=== PATIENT | male | born 1945 | race Caucasian/White ===

== ENCOUNTER 2022-12-19 09:27 | Emergency (ER) | payer OTHER, SELFPAY ==
[2022-12-19 09:28] VITALS: BP 178/104; PULSE 92; RESP 14; TEMP 36.4; O2SAT 98; BMI 27.2
--- NOTE | 2022-12-19 09:54 | RAD_ITS ---
STUDY: X-RAY CHEST REASON FOR EXAM: Male, 76 years old. Neuro deficit, acute, stroke suspected TECHNIQUE: Single AP portable view of the chest. COMPARISON: None. FINDINGS: The lungs are clear and expanded. There is no demonstrated pleural abnormality. Normal size heart. Normal mediastinum and umang. Normal visualized pulmonary arteries. There is atherosclerotic calcification of the aortic arch with tortuosity. There are diffuse degenerative changes of the visualized thoracic spine. Normal visualized ribs, clavicles, and shoulders. There is no demonstrated abnormality of the visualized soft tissue structures of the upper abdomen. RAD/Chest 1 View IMPRESSION: Degenerative changes, as described above. No demonstrated acute cardiopulmonary process. Electronically Signed: Bo Becker MD at 11:04 EDT ,
--- NOTE | 2022-12-19 09:54 | EKG12_ITS ---
Test Reason : R/O STROKE Blood Pressure : / mmHG Vent. Rate : 071 BPM Atrial Rate : 071 BPM P-R Int : 182 ms QRS Dur : 072 ms QT Int : 364 ms P-R-T Axes : 038 -13 004 degrees QTc Int : 395 ms Normal sinus rhythm Low voltage QRS Inferior infarct , age undetermined Abnormal ECG Confirmed by NATHALIA LEE, GIOVANNI ([id number]), field map editor KERRIE PAREDES ([id number]) on 12/22/2022 9:59:23 AM Referred By: BRITTANEY Confirmed By:CORI SLOAN MD
[2022-12-19 10:14] LABS: Absolute Lymphocyte Count 1.52 X10^3/uL (0.83-4.51); Absolute Neutrophil Count 3.2 X10^3/uL (2.0-7.7); Basophil# 0.04 X10^3/uL; Basophil% 0.7 % (0-1); Eosinophil# 0.25 X10^3/uL; Eosinophils% 4.5 % (0-5); Hematocrit 48.3 % (40-54); Hemoglobin 16.4 g/dL (13.0-16.5); Lymphocyte # 1.52 X10^3/ul (0.83-4.51); Lymphocyte % 27.6 % (19-41); Mean Corpuscular Hgb 31.2 pg (27.0-32.0); Mean Platelet Vol. 10.2 fl (6.2-12.0); Monocyte# 0.49 X10^3/uL; Monocyte% 8.9 % (0-10); NRBC Flagged by Analyzer 0 % (0-5); Neutrophil % 58.1 % (47-70); Platelet Count 176 K/mm3 (150-450); RBC Distribution Width CV 12.7 % (11.6-14.6); RBC Distribution Width SD 42.7 fl (35.1-43.9); Red Blood Count 5.25 M/mm3 (4.6-6.2); White Blood Count 5.5 K/mm3 (4.4-11.0)
[2022-12-19 10:18] VITALS: BP 161/90; PULSE 71; RESP 12; O2SAT 94
[2022-12-19 10:23] LABS: International Normalized Ratio 1.1; Partial Thromboplast Time 32.9 Seconds (24.1-36.2); Prothrombin Time (Protime)PT. 13.6 SECONDS (11.7-14.9)
[2022-12-19 10:29] LABS: Anion Gap 3 (5-15); BUN 16 mg/dL (7-18); BUN/Creat Ratio 17.1 RATIO (10-20); Chloride 108 mmol/L (98-107); Creatinine, Serum 0.94 mg/dL (0.70-1.30); EST Glomerular Filtration Rate 84 mL/min (>60); Est Glom Filt Rate - Afr Amer 101 mL/min (>60); Estimated Creatinine Clearance 71.19 ml/min; Glucose 94 mg/dL (74-106); Potassium 4.2 mmol/L (3.5-5.1); Sodium Level 140 mmol/L (136-145); Troponin-I HS 32 pg/mL (3.0-78.0)
[2022-12-19 10:33] VITALS: BP 151/93; PULSE 80; RESP 16; O2SAT 94
[2022-12-19 10:35] LABS: Bedside Glucose 78 mg/dL (74-106)
--- NOTE | 2022-12-19 10:57 | ED.RN ---
FAXED SIGNED VOLUNTARY AND GENERAL CONSENT AND NEGATIVE TEST TO [facility] PER THEIR REQUEST
--- NOTE | 2022-12-19 11:15 | EDS_ITS ---
HPI History of Present Illness Chief Complaint: General Illness Detail of Chief Complaint: MRI revealed a stroke Informant: patient Onset/Context/Timing Onset: - (Onset is unknown) Context: - (Intermittent visual complaints) Timing: Intermittent Quality: Visual complaints affecting upper visual schulte bilaterally Location: Documented Current Severity: Gone Maximum Severity: Mild Worsened by: Nothing Relieved by: Nothing Associated Symptoms Associated Symptoms: No other symptoms Narrative Narrative: Patient is 76-year-old male who had an MRI performed yesterday at the [facility]. He was contacted today by Dr. Allen because the MRI revealed a a probable infarct 9 mm acute small left posterior frontal cortex/subcortex white matter. Patient presently has no symptoms. His visual symptoms have been going on for some time. Per records that were transmitted from the CT indicates that this is been going on for 2 years. Based on his medication list he has history of anxiety, hypertension, and constipation. Creatinine is normal. LDH is unremarkable. Hemoglobin A1c is normal. Patient is not the best informant. Prior similar symptoms: Yes Recent Illness/Hospitalization: Yes PFSH PFS Medical History Cataract fragments in eye following surgery HTN (hypertension) Allergy/AdvReac Type Severity Reaction Status Date / Time No Known Allergies Allergy Verified 12/19/22 09:30 Social History (Updated 12/19/22 @ 11:[address] Philip Delacruz MD) Smoking Status: Former smoker substance use type: does not use ROS ROS ED Constitutional Constitutional ED: Denies chills, fever(s), subjective, sweats or weight loss Eyes Eyes: Reports change in vision bilateral (Affecting upper visual field at least for 1 year if not longer.) ENT ENT ED: Denies ear pain, rhinorrhea or sore throat Cardiovascular Cardiovascular: Denies chest pain or palpitations Respiratory/Chest Respiratory/Chest: Denies cough, dyspnea or dyspnea on exertion Gastrointestinal Gastrointestinal: Denies abdominal pain, nausea or vomiting Musculoskeletal Musculoskeletal: Denies arthralgias, back pain or myalgias Integumentary Denies Abrasions Neurologic Neurologic: Denies headache(s), paresthesias or weakness Psychiatric Psychiatric: Reports anxiety Endocrine Endocrinology: Denies polydipsia or polyuria Hematologic/Lymphatic Hematologic/Lymphatic: Reports systems reviewed and no addt'l complaints, except as documented EXAM Physical Exam Const Vital Signs: 12/19/22 09:28 12/19/22 10:03 12/19/22 10:06 Temperature 97.6 F L Temperature Source Temporal Pulse Rate 92 Respiratory Rate 14 Respiratory Effort Normal Non-Labored Blood Pressure 178/104 H Blood Pressure Mean 128 Pulse Ox 98 Oxygen Delivery Method Room Air Room Air 12/19/22 10:18 12/19/22 10:33 12/19/22 12:02 Temperature Temperature Source Pulse Rate 71 80 76 Respiratory Rate 12 16 11 L Respiratory Effort Blood Pressure 161/90 H 151/93 H 153/97 H Blood Pressure Mean 113 112 115 Pulse Ox 94 94 94 Oxygen Delivery Method Room Air Room Air Room Air Positive well nourished and well developed General Appearance ED: well developed and NAD; Negative for pallor HEENT Reports moist mucous membranes HEENT Narrative: Head is atraumatic normocephalic. Ears normal. Posterior pharynx is normal. Aviation tongue with protrusion. Eyes PERRL and EOMs intact bilaterally Eyes Narrative: There is no visual field cut. General Eye ED: Negative for pale conjunctiva or scleral icterus Neck no lymphadenopathy, supple and no JVD Chest Wall inspection of chest normal and palpation of chest normal Cardio regular rate, regular rhythm, S1 normal heart sound, S2 normal heart sound and no murmurs GI normal to inspection, nondistended, normoactive bowel sounds, non-tender, non- distended and no masses; Negative for hepatosplenomegaly Back/Spine no CVA tenderness Thoracic Spine / Upper Back: Negative for thoracic spinal tenderness Lumbar Spine / Lower Back: Negative for lumbar spinal tenderness Neuro oriented x3, CN's II-XII intact bilaterally and no sensory deficits noted Neuro Narrative: NIH is 0 Sensorium / Orientation: alert Motor Exam: strength 5/5 throughout Psych mental status grossly normal Skin no rashes or lesions noted, no wounds and skin turgor normal General Skin Exam: Negative for jaundice or pallor MDM MDM MDM Narrative Medical decision making narrative: Stroke order set was initiated. Imaging was not performed since he had an MRI which reportedly revealed a stroke yesterday. Dr. 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 Lab results narrative: CBC is normal. Coags are normal. Basic meta Bolick panel is normal. Trip and is normal Labs: Laboratory Results - last 24 hr 12/19/22 12/19/22 12/19/22 10:05 10:05 10:05 WBC 5.5 RBC 5.25 Hgb 16.4 Hct 48.3 MCV 92.0 MCH 31.2 MCHC 34.0 RDW Std Deviation 42.7 RDW Coeff of [place] 12.7 Plt Count 176 MPV 10.2 Immature Gran % (Auto) 0.200 Neut % (Auto) 58.1 Lymph % (Auto) 27.6 [place] % (Auto) 8.9 Eos % (Auto) 4.5 Baso % (Auto) 0.7 Absolute Neuts (auto) 3.2 Absolute Lymphs (auto) 1.52 Nucleated RBC % 0 PT 13.6 INR 1.1 APTT 32.9 Sodium 140 Potassium 4.2 Chloride 108 H Carbon Dioxide 29.0 Anion Gap 3 L BUN 16 Creatinine 0.94 Estim Creat Clear Calc 71.19 Est GFR (MDRD) Af Amer 101 Est GFR (MDRD) Non-Af 84 BUN/Creatinine Ratio 17.1 Glucose 94 Calcium 9.0 Troponin I High Sens 32 POC Glucose 12/19/22 10:14 WBC RBC Hgb Hct MCV MCH MCHC RDW Std Deviation RDW Coeff of [place] Plt Count MPV Immature Gran % (Auto) Neut % (Auto) Lymph % (Auto) [place] % (Auto) Eos % (Auto) Baso % (Auto) Absolute Neuts (auto) Absolute Lymphs (auto) Nucleated RBC % PT INR APTT Sodium Potassium Chloride Carbon Dioxide Anion Gap BUN Creatinine Estim Creat Clear Calc Est GFR (MDRD) Af Amer Est GFR (MDRD) Non-Af BUN/Creatinine Ratio Glucose Calcium Troponin I High Sens POC Glucose 78 Radiography Chest X-Ray - ED: 1 View and Read by ED Physician (Single view chest x-ray reveals chronic changes. There is degenerative disc disease noted. Cardiac silhouette size unremarkable. Lung parenchyma is unremarkable. Perihilar regions unremarkable.) Diagnostic Testing: Clinical Impression(s) from Imaging Studies Chest X-Ray 12/19/22 09:54 IMPRESSION: Degenerative changes, as described above. No demonstrated acute cardiopulmonary process. Electronically Signed: Bo Becker MD at 11:04 EDT , EKG Initial EKG: Attestation: I personally reviewed and interpreted this EKG as follows: Interpretation: Sinus Rhythm (Rate is 71. Voltage is low. OH interval is 182 ms. Cures duration 72 ms. QT duration 3 and 64 ms. Gamaliel is normal. There is no acute ischemic changes noted) Treatment and Re-Evaluation :: Patient was informed that he would need a further work-up for stroke and stroke education. Since he has not had an echo within the past year he needs an echocardiogram. He did have a ultrasound of his carotid last year. There is abnormality. He states he was told he needs annual ultrasounds of his carotid. In light of the fact that he has not had a recent echo, is getting annual ultrasounds of his carotid and needs stroke education follow-up recommendation is 23 hours observation to expedite his work-up especially since the MRI shows an abnormality. The hospitalist did call back. The charge nurse took the call since I was with a patient. The hospitalist [facility]. I was informed by the department secretary that she received a authorization number for the CT for patient to be admitted here. We will recontact the hospitalist. 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
--- NOTE | 2022-12-19 11:51 | ED.RN ---
PT HAS [facility] INSURANCE, THIS RN CALLED THE [facility] TRANSFER LINE. THEY REQUEST E-CHART TO BE FAXED TO [phone].
[2022-12-19 12:02] VITALS: BP 153/97; PULSE 76; RESP 11; O2SAT 94
--- NOTE | 2022-12-19 12:03 | ED.RN ---
[facility] FAXED PER THIS RN AT [phone].
--- NOTE | 2022-12-19 12:21 | ED.RN ---
NOTIFICATION # [id number] AUTH # [id number]
[2022-12-19 12:35] VITALS: BP 155/96; PULSE 80; RESP 17; TEMP 36.8; O2SAT 96
--- NOTE | 2022-12-19 13:07 | DCINST_ITS ---
Discharge Instructions Diet Discharge Diet: Low fat / Low cholesterol Activity Discharge Activity: Return to Normal Activity Additional Activity Instructions:: Continue your home medication as previously ordered. Dressing / Incision Call your doctor if you observe: - (increased or recurrent blurred vision. unilateral (one-sided) weakness. ) Follow Up Care Test Results: Test results from this visit will be discussed in further detail at your follow- up appointment, if applicable. 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
--- NOTE | 2022-12-19 13:10 | PCM.CONS.GEN ---
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 3 medical decision making I discussed with the patient and his significant other at bedside my recommendations: My recommendations were the same as the emergency room physician that he should be admitted and undergo further work-up in regards to completing the stroke work-up which included echocardiogram, carotid ultrasound, physical and Occupational Therapy. Also acknowledging that he may need an event monitor for 30 days because of his self-reported history of atrial fibrillation. Patient is currently not in atrial fibrillation. I also acknowledged that the event happened 2 weeks ago and that he has been having these issues over the past 2 years and now it is finally been diagnosed. I did acknowledge that it does require further work-up. After deliberation, patient states that he would prefer to go home and is [facility] Patient is confident that he would be able to get an echocardiogram as well as carotid ultrasound what ever additional testing may need to be had. So patient is aware of the recommendations by myself as well as Dr. Delacruz to stay and get work-up but he wishes to go home. Being that this event happened 2 weeks or so ago the urgency for these tests being done immediately has passed as a event is now subacute. Patient has been advised if he does have worsening symptoms such as visual field issues or new symptoms such as unilateral weakness, expressive or receptive aphasia, to notify physician or come back into the emergency room. Patient is to continue with his aspirin that he is taking previously. Patient [facility] to get his [facility]in prescription. PLAN: Plan Hypertension: Continue with his Norvasc 2.5 mg daily HPI Consult Data Date of Consult: 12/19/22 HPI Narrative Reason for Consultation: Stroke HPI Narrative: JUSTICE UNGER, is a 76 M who presents presents after being advised to come to the emergency room. Patient has, over the past couple years, had visual fog that lasted for roughly 5 minutes. Last event was about 2 weeks ago. Symptoms completely resolved has not been having any further symptoms before. [facility] that showed a probable infarct of 9 mm of an acute small left posterior frontal cortex/subcortex white matter. Physician called the patient to go to the emergency room and have further stroke evaluation. Patient otherwise feels fine and once again, has not had any symptoms in the past 2 weeks. [facility] Medical History Cataract fragments in eye following surgery HTN (hypertension) Allergy/AdvReac Type Severity Reaction Status Date / Time No Known Allergies Allergy Verified 12/19/22 09:30 Family History (Updated 12/19/22 @ 13:[address] Brandon Copeland DO) Other Cancer Social History Smoking Status: Former smoker substance use type: does not use ROS ROS Narrative Patient thinks he may have had A-fib in the past. All review of systems were negative except as mentioned above in the history of present illness and the other review of systems. Physical Exam Const alert and no apparent distress HEENT normocephalic, head/scalp atraumatic and moist oral mucous membranes Eyes PERRL and EOMs intact bilaterally Eyes Narrative: Impaired peripheral visual field in the right upper quadrant. Neck no lymphadenopathy and no carotid bruits Resp normal respiratory effort, no retractions, no use of accessory muscles and clear to auscultation bilaterally Cardio regular rate, regular rhythm, S1 normal heart sound and S2 normal heart sound GI normal to inspection, nondistended, normoactive bowel sounds, soft to palpation, non-tender and non-distended Extremity normal to inspection and full ROM Neuro oriented x3, CN's II-XII intact bilaterally, moves all extremities, no focal motor deficits and no sensory deficits noted Lab / Micro Data Attestation: I reviewed the patient's lab results. Result Diagrams: 12/19/22 10:05 12/19/22 10:05 Labs: Laboratory Results - last 24 hr 12/19/22 10:05: WBC 5.5, RBC 5.25, Hgb 16.4, Hct 48.3, MCV 92.0, MCH 31.2, MCHC 34.0, RDW Std Deviation 42.7, RDW Coeff of [place] 12.7, Plt Count 176, MPV 10.2, Immature Gran % (Auto) 0.200, Neut % (Auto) 58.1, Lymph % (Auto) 27.6, [place] % (Auto) 8.9, Eos % (Auto) 4.5, Baso % (Auto) 0.7, Absolute Neuts (auto) 3.2, Absolute Lymphs (auto) 1.52, Nucleated RBC % 0 12/19/22 10:05: PT 13.6, INR 1.1, APTT 32.9 12/19/22 10:05: Sodium 140, Potassium 4.2, Chloride 108 H, Carbon Dioxide 29.0, Anion Gap 3 L, BUN 16, Creatinine 0.94, Estim Creat Clear Calc 71.19, Est GFR (MDRD) Af Amer 101, Est GFR (MDRD) Non-Af 84, BUN/Creatinine Ratio 17.1, Glucose 94, Calcium 9.0, Troponin I High Sens 32 12/19/22 10:14: POC Glucose 78 EKG Initial EKG: Attestation: I personally reviewed and interpreted this EKG as follows: Prior EKG tracings: available for review EKG Rhythm Intrepretation: Sinus Rhythm Radiology Impression Chest X-Ray 12/19/22 09:54 IMPRESSION: Degenerative changes, as described above. No demonstrated acute cardiopulmonary process. Electronically Signed: Bo Becker MD at 11:04 EDT , Charges/Coding Visit Charges Office Visits / Consults: [id number] OP Consult L4
[2022-12-19 13:33] VITALS: BMI 27.2
--- NOTE | 2022-12-19 13:39 | ED.RN ---
THIS RN GAVE PT WRITTEN MATERIALS EDUCATING PT ON STROKE. PT VERBALIZED UNDERSTANDING OF MATERIALS. THIS RN COMPLETED THE TEACH BACK METHOD TO EVALUATE KNOWLEDGE ON STROKE INFORMATION PROVIDED. PT VERBALIZED UNDERSTANDING AT 1341.
[2022-12-19 14:02] VITALS: BP 144/110; PULSE 72; RESP 17; O2SAT 96
--- NOTE | 2022-12-19 14:06 | ED.RN ---
PT DISCHARGED. PAPERWORK PROVIDED TO PT. DISCHARGE TEACHING PROVIDED TO PT AND SPOUSE. IV DISCONTINUED BY PRINT WASHER STUDENT. SITE WITHOUT ANY SIGNS AND SYMPTOMS OF INFILTRATION OR IRRITATION PER THIS RN.
== END 2022-12-19 14:04 | disposition home or self-care (01) ==
PROVIDERS: Emergency Provider Emergency Medicine; Visit Provider Emergency Medicine
DX: I63.89 Other cerebral infarction (principal); I10 Essential (primary) hypertension; Z87.891 Personal history of nicotine dependence
CPT/HCPCS: 71045; 80048; 82962; 84484; 85025; 85610; 85730; 93005; 99285; A4216